=== PATIENT | male | born 1965 | race Caucasian/White ===

== ENCOUNTER 2023-07-10 04:30 | Day surgery (SDC) | payer OTHER ==
[~2023-07-10] VITALS: Ht 177.8 cm; Wt 79.4 kg
[2023-07-10] MEDS ORDERED: ACETAMINOPHEN 500 MG TABLET ONE (04:58)
[2023-07-10] MEDS ORDERED: ONDANSETRON 4 MG ODT TAB ONE (04:58)
[2023-07-10] MEDS ORDERED: SCOPOLAMINE HYDROBROMIDE 1 MG PATCH .72 H (TRANSDERM-SCOP) TD ONE ×2 (04:59→06:00)
[2023-07-10] MEDS ORDERED: CELECOXIB 200 MG CAPSULE ONE (04:59)
[2023-07-10] MEDS ORDERED: GABAPENTIN 400 MG CAPSULE ONE (04:59)
[2023-07-10 05:53] VITALS: PULSE 81; RESP 16; TEMP 97.9; O2SAT 98
[2023-07-10] MEDS ORDERED: oxyCODONE HCL 10 MG TAB.ER.12H PO ONE ×2 (06:00→06:56)
[2023-07-10] MEDS ORDERED: ACETAMINOPHEN 500 MG TABLET PO ONE (06:00)
[2023-07-10] MEDS ORDERED: CELECOXIB 200 MG CAPSULE PO ONE (06:00)
[2023-07-10] MEDS ORDERED: CEFAZOLIN SOD 2 GM in D5W 50 ML IV ONE (06:00)
[2023-07-10] MEDS ORDERED: ONDANSETRON 4 MG ODT TAB PO ONE (06:00)
[2023-07-10] MEDS ORDERED: GABAPENTIN 400 MG CAPSULE PO ONE (06:00)
[2023-07-10] MEDS ORDERED: VANCOMYCIN HCL 1.25 GM/NS 250 ML IV ONE (06:00)
[2023-07-10] MEDS ORDERED: NS IRRIG SOLN 5000 ML IR ONE (07:06)
[2023-07-10] MEDS ORDERED: ROPIVACAINE 40 MG/20 ML AMP EP ONE (07:06)
[2023-07-10] MEDS ORDERED: ceFAZolin SODIUM 2 GM VIAL ONE (07:06)
[2023-07-10] MEDS ORDERED: DEXAMETHASONE SOD PHOSPHATE 4 MG/ML VIAL ONE (07:06)
[2023-07-10] MEDS ORDERED: KETOROLAC TROMETHAMINE 30 MG VIAL ONE (07:06)
[2023-07-10] MEDS ORDERED: POLYMYXIN B SULFATE 500,000 UNITS VIAL ONE (07:06)
[2023-07-10] MEDS ORDERED: ONDANSETRON HCL 4 MG/2 ML VIAL ONE (07:06)
[2023-07-10] MEDS ORDERED: TRANEXAMIC ACID 1,000 MG/10 ML VIAL ONE (07:06)
[2023-07-10] MEDS ORDERED: NS IRRIG SOLN 1000 ML IR ONE (07:06)
[2023-07-10] MEDS ORDERED: LR 1,000 ML IV.SOLN IV ONE (07:06)
[2023-07-10] MEDS ORDERED: PROPOFOL 200MG/ 20ML VIAL (DIPRIVAN) IV ONE (07:06)
[2023-07-10] MEDS ORDERED: SEVOFLURANE 15 MIN GAS INH ONE (07:06)
[2023-07-10] MEDS ORDERED: VANCOMYCIN HCL 1000 MG/VIAL IV ONE (07:06)
[2023-07-10] MEDS ORDERED: BUPIVACAINE /DEX PF 0.75% SPINAL 2 ML AMP INJ ONE (07:06)
[2023-07-10] MEDS ORDERED: WATER FOR IRRIGATION,STERILE 1,000 ML IRRIG.SOLN IR ONE (07:06)
[2023-07-10] MEDS ORDERED: ACETAMINOPHEN I.V. 1000 MG 100 ML IV ONE (08:43)
[2023-07-10] MEDS ORDERED: HYDROmorphone 1 MG/ML INJ. CARTRIDGE IVP PRN (08:45)
[2023-07-10] MEDS ORDERED: ONDANSETRON HCL 4 MG/2 ML VIAL IVP PRN ×2 (08:45→09:45)
[2023-07-10] MEDS ORDERED: KETOROLAC TROMETHAMINE 30 MG VIAL IVP PRN (08:45)
[2023-07-10] MEDS ORDERED: METOCLOPRAMIDE HCL 10 MG/2 ML VIAL IVP PRN (08:45)
[2023-07-10] MEDS ORDERED: HYDROcodone/ACETAMIN 7.5-325 MG TAB PO PRN (09:45)
[2023-07-10] MEDS ORDERED: HYDROcodone/ACETAMIN 5-325 MG TAB (NORCO/ VICODIN) PO PRN (09:45)
[2023-07-10 09:51] VITALS: BP_SYST 124
[2023-07-10] MEDS ORDERED: CEFAZOLIN 1 GM IVPB PREMIX 50 ML IV SCH (14:00)
[2023-07-10] MEDS ORDERED: CEFAZOLIN 1 GM IVPB PREMIX 50 ML IV ONE (14:31)
== END 2023-07-10 12:30 | disposition home or self-care (01) ==
LOC: SDS 04:30 → SMU 04:30 → SDS 12:30
PROVIDERS: ATTEND Orthopaedic Surgery
DX: M17.12 Unilateral primary osteoarthritis, left knee (principal); E78.5 Hyperlipidemia, unspecified; I12.9 Hypertensive chronic kidney disease with stage 1 through stage 4 chronic kidney disease, or unspecified chronic kidney disease; N18.1 Chronic kidney disease, stage 1; Z79.899 Other long term (current) drug therapy
CPT/HCPCS: 87081; 27447; 97162; 64447; 97530; 97110; 97116; 86886; 86900; 86901; 36415; 73560; 88305; 88311; Q0162; J3490 ×2; J0690 ×2; J1100; J1885; J2405; J2704; J2795; J3370 ×2; J7060; J7120; A4649; C1713 ×2; C1776; J0131